=== PATIENT | female | born 1990 | race Caucasian/White ===

== ENCOUNTER 2017-01-16 16:33 | Outpatient (CLI) | payer OTHER ==
[2017-01-16] MEDS ORDERED: BETAMETH SOD PHOS/ACETATE IA 6 MG/ML IM SCH (18:45)
[2017-01-16 19:08] LABS: BASO % 0.2 %; BASO ABS # 0.02 K/uL (0-0.2); COMPLETE YES; EOS % 1.2 %; HEMATOCRIT 30.9 % (37-47); IG% 0.8 %; LYMPH % 26.6 %; LYMPH ABS # 2.46 K/uL (1.2-3.4); MEAN CELL VOLUME 90.4 fL (80-100); MEAN CORPUSCULAR HEMOGLOBIN 29.8 pg (25-34); MEAN PLATELET VOLUME 10.8 fL (7.4-10.4); MONO % 9.3 %; NEUT % 61.9 %; PLATELET COUNT 174 K/uL (130-400); RED BLOOD COUNT 3.42 M/uL (4.2-5.4); WHITE BLOOD COUNT 9.24 K/uL (4.8-10.8)
--- NOTE | 2017-01-16 19:44 | DIAGNOSTIC IMAGING REPORT ---
LIMITED (US) CLINICAL HISTORY: 26 years-old Female presenting with bleeding at 30 weeks. TECHNIQUE: Real-time grayscale, M-mode and limited color Doppler ultrasound imaging of the pelvis was performed using a transabdominal probe. COMPARISON: None. FINDINGS: Uterus: Single live intrauterine . heart rate 136 bpm. Cephalic presentation. Biparietal diameter 77 mm (estimate gestational age 31 weeks 0 days). Femur length 55 mm (assessment gestational age 28 weeks 6 days). Estimated composite gestational age 29 weeks 4 days. Estimated date of delivery 03/30/2017. Anterior placenta, which is normal-appearing. Normal vascularity of the placenta. Normal amniotic fluid volume. No perigestational fluid collection visualized. Adnexa: Not evaluated secondary to the size of the uterus. Other: No free fluid. IMPRESSION: 1. Single live intrauterine with estimated gestational age 29 weeks 4 days (estimated delivery 03/30/2017). 2. Anterior normal-appearing placenta. Electronically signed by: Arash Chapa M.D. 01/16/2017 7:43 PM Dictated Date/Time: 01/16/2017 7:38 PM
[2017-01-16 19:56] LABS: FIBRINOGEN* 330 mg/dl (184-400); INR 0.9 (0.9-1.1); PROTHROMBIN TIME (PATIENT) 9.8 SECONDS (9.0-12.0)
[2017-01-16 20:40] LABS: URINE APPEARANCE CLEAR (CLEAR); URINE BILIRUBIN NEG (NEG); URINE COLOR YELLOW; URINE EPITHELIAL CELL AUTO 20-30 /lpf (0-5); URINE NITRITE NEG (NEG); UROBILINOGEN NEG (NEG); ZZUR CULT IF INDIC CLEAN CATCH NO
[2017-01-16 20:42] LABS: MANUAL MICROSCOPIC REQUIRED? NO; REVIEW REQ? NO
--- NOTE | 2017-01-16 20:47 | History and Physical ---
History & Physical Date & Time of Service: Jan 16, 2017 at 20:23 Chief Complaint: Check Bleeding Primary Care Physician: No Doctor, Assigned History of Present Illness Source: patient 26yo at 30 weeks gestation with sudden vag bleeding. seen on L&D and evaluated for her bleeding. No hx of bleeding in this review of records show anterior placenta at sono for 11/05/16 Pt denies any trauma to the abdomen, fall or intercourse in the last 2 days On arrival to L&D there was very little bleeding on her pad. FHR CAT1. No ctx on monitor. Pelvic exam showed small amount of blood in the vaginal vault. No active bleeding from cervix. cervix is closed and thick Labs for abruption done with sonogram Unremarkable labs Family History Noncontributory Social History Smoking Status: Never Smoker Smokeless Tobacco Use: No Alcohol Use: none Drug Use: none Marital Status: Housing status: lives with family Occupational Status: employed Multi-Drug Resistant Organisms History of MDRO: No Allergies Coded Allergies: No Known Allergies (Unverified , 02/21/08) Home Medications Miscellaneous Medications None (Patient States No Home Meds) Review of Systems Constitutional: No fever, No chills, No sweats, No weight loss, No weakness, No fatigue Eyes: + problem reported, No worsening of vision, No eye pain, No redness, No discharge, No diplopia ENT: + problem reported Respiratory: No cough, No sputum, No wheezing, No shortness of breath, No dyspnea on exertion, No dyspnea at rest, No hemoptysis, No problem reported Cardiovascular: No chest pain, No orthopnea, No PND, No edema, No claudication , No palpitations, No problem reported Abdomen: No pain, No nausea, No vomiting, No diarrhea, No constipation, No GI bleeding, No problem reported Musculoskeletal: No joint pain, No muscle pain, No swelling, No calf pain, No problem reported Genitourinary - Female: No dysuria, No urinary frequency, No urinary urgency, No urinary incontinence, No urinary retention, No hematuria, No dysmenorrhea, No menorrhagia, No metrorrhagia, No rash, No vaginal bleeding, No vaginal discharge, No vaginal itching, No vulvodynia, No , No problem reported Neurologic: No memory loss, No paralysis, No weakness, No numbness/tingling, No vertigo, No balance problems, No problem reported Psychiatric: No depression symptoms, No anhedonism, No anxiety, No insomnia, No substance abuse, No problem reported Endocrine: No fatigue, No excessive thirst, No excessive urination, No problem reported Hematologic / Lymphatic: No abnormal bleeding/bruising, No clotting problems, No swollen lymph nodes, No night sweats, No problem reported Integumentary: No rash, No itch, No new/changing skin lesions, No color change , No bleeding, No problem reported Physical Exam General Appearance: WD/WN, no apparent distress Head: normocephalic, atraumatic Eyes: normal inspection, PERRL, EOMI ENT: normal ENT inspection, hearing grossly normal, TMs normal Neck: supple, no adenopathy Respiratory/Chest: chest non-tender, lungs clear Cardiovascular: regular rate, rhythm, no edema Abdomen/GI: normal bowel sounds Genitourinary - Female: + pertinent finding (small amount of blood in the vaginal vault. no active bleeding from cervix. 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 Skin: normal color Diagnostics Laboratory Results Results Past 24 Hours Test 01/16/17 18:34 01/16/17 18:55 01/16/17 18:56 Range/Units Prothrombin Time 9.8 9.0-12.0 SECONDS Prothromb Time International Ratio 0.9 0.9-1.1 Fibrinogen 330 184-400 mg/dl Fibrin Degradation Products <10 <10 mcg/ml White Blood Count 9.24 4.8-10.8 K/uL Red Blood Count 3.42 4.2-5.4 M/uL Hemoglobin 10.2 12.0-16.0 g/dL Hematocrit 30.9 37-47 % Mean Corpuscular Volume 90.4 80-100 fL Mean Corpuscular Hemoglobin 29.8 25-34 pg Mean Corpuscular Hemoglobin Concent 33.0 32-36 g/dl Platelet Count 174 130-400 K/uL Mean Platelet Volume 10.8 7.4-10.4 fL Neutrophils (%) (Auto) 61.9 % Lymphocytes (%) (Auto) 26.6 % Monocytes (%) (Auto) 9.3 % Eosinophils (%) (Auto) 1.2 % Basophils (%) (Auto) 0.2 % Neutrophils # (Auto) 5.72 1.4-6.5 K/uL Lymphocytes # (Auto) 2.46 1.2-3.4 K/uL Monocytes # (Auto) 0.86 0.11-0.59 K/uL Eosinophils # (Auto) 0.11 0-0.5 K/uL Basophils # (Auto) 0.02 0-0.2 K/uL RDW Standard Deviation 45.0 36.4-46.3 fL RDW Coefficient of Variation 13.6 11.5-14.5 % Immature Granulocyte % (Auto) 0.8 % Immature Granulocyte # (Auto) 0.07 0.00-0.02 K/uL Impression VTE Prophylaxis VTE Risk Assessment Done? Y/N: Yes Risk Level: Very Low Note 3rd TM bleeding on Bleeding is stable since arrival on L&D labs and sono done - unremarkable Pt given betamethasone 12mg IM and second dose scheduled for tomorrow I have recommended to patient 72 hrs of inpatient observation have explained to her and her family, the risk of another spontaneous bleed despite nml labs and sonogram finding. I have explained to her this will allow for adequate time for steriod benefit to the baby as well she understands the potential risk of another bleed which my be more severe and the potential that she may not make it to the hospital in time for an emergency c/sec and or treatment that can lead to both her demise as well as that of the baby pt tells me she has a day care center and cannot afford not to be there This discussion is held with her mother and spouse in the room she is therefore given AMA forms and signing out against my medical advice and recommendation she has however agreed to return tomorrow for her second dose of IM steriods she knows to call or came back if her bleeding increase or if she changes her mind We have discussed the need for pelvic rest and decrease activity as much as possible
--- NOTE | 2017-01-16 20:50 | Discharge Instructions ---
Discharge Instructions Date of Service Jan 16, 2017. Admission Reason for Admission: Check Bleeding Discharge Discharge Diagnosis / Problem: bleeding in 3rd trimester of Discharge Goals Goal(s): Continuing OB care Activity Recommendations Activity Limitations: as noted below Lifting Limitations: none Exercise/Sports Limitations: none Driving or Machine Use: no limitations ACTIVITY RECOMMENDATIONS: See Labor Sheet. SPECIAL CARE INSTRUCTIONS: Call Doctor if: * Regular contractions every 5 minutes or greater than contractions in one hour. * Bleeding * Water breaks or is leaking * Decreased movement * Fever >100.4 degrees F * Pain not relieved by routine measures or pain medication ordered. FOLLOW UP VISIT: Return to Labor and Delivery on for /call for appointment time . Follow-up Visit with: When: . Current Hospital Diet Patient's current hospital diet: Regular OB Diet Discharge Diet Recommended Diet: Regular Diet Pending Studies Studies pending at discharge: no Medical Emergencies . Who to Call and When: Medical Emergencies: If at any time you feel your situation is an emergency, please call 911 immediately. . Non-Emergent Contact Non-Emergency issues call your: Specialist . . "Provider Documentation" section prepared by Juarez Mo. . VTE Core Measure Inpt VTE Proph given/why not?: Treatment not indicated
[2017-04-04] MEDS ORDERED: MTR600X PO (10:13)
== END 2017-01-16 21:00 | disposition home or self-care (01) ==
LOC: C.OPB 16:33 → C.LD 16:33 → C.OPB 21:00
PROVIDERS: ATTEND Obstetrics & Gynecology
DX: O46.93 Antepartum hemorrhage, unspecified, third trimester (principal); Z3A.30 30 weeks gestation of pregnancy; Z91.19 Patient's noncompliance with other medical treatment and regimen

== ENCOUNTER 2017-01-17 19:35 | Outpatient (CLI) | payer OTHER ==
[2017-01-17] MEDS ORDERED: NURSING VERBAL MED ORDER ONE (20:15)
[2017-01-17] MEDS ORDERED: BETAMETH SOD PHOS/ACETATE IA 6 MG/ML IM ONE (20:15)
--- NOTE | 2017-01-25 13:26 | EDITING REQUIRED CODING QUERY ---
DIAGNOSIS NEEDED To promote full compliance with coding requirements relating to patient care, physician participation is requested in all cases of orthopedic coder uncertainty. Please assist us with the question(s) below: Coding Question: The patient received care in labor and delivery on 01/18/17 as noted within the record. Please document the diagnosis that is being addressed by the medication/treatment. Provider Response: DIAGNOSIS: Managed by Dr. Mo Thank you for your assistance, Jerica Abreu - Embedded Software Engineer
--- NOTE | 2017-02-13 11:08 | EDITING REQUIRED CODING QUERY ---
DIAGNOSIS NEEDED To promote full compliance with coding requirements relating to patient care, physician participation is requested in all cases of fuel operator uncertainty. Please assist us with the question(s) below: Coding Question: The patient received care in labor and delivery on 01/18/17 as noted within the record. Please document the diagnosis that is being addressed by the medication/treatment. Provider Response: DIAGNOSIS: labor Thank you for your assistance, Jerica Abreu - Shotblaster
== END 2017-01-17 20:20 | disposition home or self-care (01) ==
LOC: C.OPB 19:35 → C.LD 20:05 → C.OPB 20:20
PROVIDERS: ATTEND Obstetrics & Gynecology
DX: O60.03 Preterm labor without delivery, third trimester (principal); Z3A.30 30 weeks gestation of pregnancy

== ENCOUNTER 2017-04-01 11:44 | Inpatient (IN) | payer OTHER ==
[~2017-04-01] VITALS: Ht 160 cm; Wt 63.2 kg
[2017-04-01] MEDS ORDERED: LACTATED RINGER'S 1000ML 1,000 ML IV PRN (12:25)
--- NOTE | 2017-04-01 12:30 | Progress Note ---
Progress Note Date of Service Apr 01, 2017. Progress Note Admit Note 26 F P1011 at 41.1 weeks admitted for IOL for post-dates. Cervix is 1/50/-3/ vertex/firm/intact. GBS is negative. FHT Cat 1. Will [address] Cervidil for cervical ripening.
[2017-04-01] MEDS ORDERED: PEDICHW50 PO (12:36)
[2017-04-01] MEDS ORDERED: FERR1TAB23 PO (12:36)
[2017-04-01 12:39] VITALS: Ht 160 cm; Wt 63.2 kg
[2017-04-01] MEDS ORDERED: DINOPROSTONE 10 MG INSERT PV ONE (12:45)
[2017-04-01 13:00] LABS: HEMATOCRIT 31.7 % (37-47); MEAN CELL VOLUME 86.4 fL (80-100); MEAN CORPUSCULAR HEMOGLOBIN 26.7 pg (25-34); MEAN CORPUSCULAR HGB CONC 30.9 g/dl (32-36); MEAN PLATELET VOLUME 11.1 fL (7.4-10.4); PLATELET COUNT 213 K/uL (130-400); RED BLOOD COUNT 3.67 M/uL (4.2-5.4); WHITE BLOOD COUNT 8.02 K/uL (4.8-10.8)
[2017-04-01] MEDS: LACTATED RINGER'S 1000ML 1,000 ML IV SCH (20:25)
[2017-04-02] MEDS ORDERED: LACTATED RINGER'S 1000ML 500 ML IV PRN ×2 (07:21→11:57)
[2017-04-02] MEDS ORDERED: OXYTOCIN 30 UNITS/500ML NSS IV PRN ×2 (07:30→17:00)
[2017-04-02] MEDS: LACTATED RINGER'S 1000ML 1,000 ML IV SCH ×3 (09:32→15:47)
[2017-04-02] MEDS ORDERED: BUPIVACAINE 0.25% 30 ML VIAL ONE (11:24)
[2017-04-02] MEDS ORDERED: EpHEDrine SULFATE INJ 50 MG/ML AMP ONE (11:24)
[2017-04-02] MEDS ORDERED: FENTANYL 2MCG/ML ROPIV 1.25MG/ML 100ML BAG EPI ONE (11:24)
[2017-04-02] MEDS ORDERED: FENTANYL CITRATE INJ 50 MCG/1 ML 2 ML VIAL ONE (11:25)
[2017-04-02] MEDS ORDERED: NALOXONE HCL INJ 1 MG in SODIUM CHLORIDE 0.9% 1000ML 1,000 ML IV PRN (11:57)
[2017-04-02] MEDS ORDERED: FENTANYL 2MCG/ML ROPIV 1.25MG/ML 100ML BAG EPI PRN (12:00)
[2017-04-02] MEDS ORDERED: PROMETHAZINE HCL INJ 6.25 MG in SODIUM CHLORIDE 0.9% 50ML 50 ML IV PRN (12:00)
[2017-04-02] MEDS ORDERED: NALOXONE HCL INJ 0.4 MG/1 ML VIAL/CARP IV PRN (12:00)
[2017-04-02] MEDS ORDERED: ONDANSETRON INJ 2 MG/ML 2 ML VIAL IV PRN (12:00)
[2017-04-02] MEDS ORDERED: NALBUPHINE HCL INJ 10 MG/ML AMP IV PRN (12:00)
[2017-04-02] MEDS ORDERED: EpHEDrine SULFATE INJ 50 MG/ML AMP IV PRN (12:00)
[2017-04-02] MEDS ORDERED: DiphenhydrAMINE HCL 50 MG/ML VIAL IV PRN (12:00)
[2017-04-02] MEDS ORDERED: DIPHTHERIA/TETANUS/PERTUSSIS 0.5 ML SYR/VIAL IM. ONE (17:00)
[2017-04-02] MEDS ORDERED: SUPERCREAM 0.870 % 15GM JAR EXT PRN (17:00)
[2017-04-02] MEDS ORDERED: ACETAMINOPHEN/CODEINE 300/30MG TAB PO PRN ×2 (17:00)
[2017-04-02] MEDS ORDERED: BENZOCAINE 20% AER SPR 82.5 GM CAN EXT PRN (17:00)
[2017-04-02] MEDS ORDERED: LANOLIN OINT EXT PRN ×2 (17:00)
[2017-04-02] MEDS ORDERED: OXYCODONE/ACETAMINOPHEN 5-325 TAB PO PRN (17:00)
[2017-04-02] MEDS ORDERED: ACETAMINOPHEN 325 MG TAB PO PRN (17:00)
[2017-04-02] MEDS ORDERED: HYDROCORTISONE ACETATE 25 MG SUPP PR PRN (17:00)
--- NOTE | 2017-04-02 18:59 | DELIVERY SUMMARY ---
DATE OF OPERATION: 04/02/2017 DATE OF DELIVERY: 04/02/2017. TIME OF DELIVERY: 1641. DELIVERY OF PLACENTA: 1645. DELIVERY NOTE: The patient is a 26-year-old 3, para 1 at 41 weeks and 2 days gestation who was admitted to labor and delivery on the morning of 04/01/2017 for a scheduled induction of labor secondary to post dates. She received Cervidil intravaginally at 12:30 p.m. and was removed at 12:30 a.m. on 04/02/2017. Oxytocin was begun per protocol for labor augmentation that morning. She received an epidural for anesthesia. Artificial rupture of membranes was performed at 1337 with clear amniotic fluid noted. She was found to be completely dilated at 1628 with the urge to push. The patient pushed to delivery at 1641. She delivered a viable male in the left occiput anterior position to an intact perineum. Nuchal cord x1 was reduced at delivery. The anterior shoulder was delivered with Miko. The rest of the baby was delivered without difficulty. Cord was clamped x2 and cut. Apgars were 7 at 1 minute and 8 at 5 minutes. Please see nursing notes for further baby assessment. Cord blood donation was obtained along with cord blood. An intact placenta with 3-vessel cord was delivered at 1645. Oxytocin infusion was then began. The lower uterine segment and vagina were cleared of any blood clots and debris. Exploration of the perineum noted a first degree vaginal laceration which was repaired with 3-0 Vicryl suture in continuous running fashion. Excellent hemostasis was noted. No other lacerations were seen. Estimated blood loss was 350 mL. All sponge, instrument and needle counts were found to be correct x2. Both patient and baby tolerated the delivery well and were in recovery with stable vital signs. I attest to the content of the Intraoperative Record and any orders documented therein. Any exceptions are noted below. MTDD
--- NOTE | 2017-04-02 19:33 | Anesthesia Procedure Note ---
Anesthesia Epidural Removal Nt Date & Time Apr 02, 2017 at 19:33 Vital Signs Pain Intensity: 8.0 Notes Mental Status: alert / awake / arousable, participated in evaluation Nausea / Vomiting: adequately controlled Pain: adequately controlled Airway Patency, RR, SpO2: stable & adequate BP & HR: stable & adequate Hydration State: stable & adequate Neuraxial Anesthesia: was administered Anesthetic Complications: no major complications apparent, pt satisfied with anesthetic care Epidural: removed without complications, with tip intact
[2017-04-02 20:35] VITALS: BP 123/72; PULSE 81; TEMP 36.9
[2017-04-02] MEDS: DOCUSATE SODIUM 100 MG CAP PO SCH ×2 (20:35→21:14)
[2017-04-02 23:50] VITALS: BP 106/64; PULSE 76; TEMP 36.6; O2SAT 97
[2017-04-02] MEDS: IBUPROFEN 600 MG TAB PO PRN (23:56)
[2017-04-03 03:30] VITALS: BP 102/60; PULSE 76; TEMP 36.8; O2SAT 99
[2017-04-03 07:40] VITALS: BP 108/66; PULSE 69; TEMP 36.7
[2017-04-03] MEDS: FERROUS SULFATE 325 MG TAB PO SCH (09:07)
[2017-04-03] MEDS: DOCUSATE SODIUM 100 MG CAP PO SCH ×2 (09:07→21:06)
[2017-04-03] MEDS: PRENATAL VITAMIN TAB PO SCH (09:07)
[2017-04-03 09:19] LABS: HEMATOCRIT 31.1 % (37-47)
--- NOTE | 2017-04-03 09:52 | OB/GYN Progress Note ---
HEARING AID DISPENSER Progress Note Date of Service Apr 03, 2017. Subjective conversation w/ patient, physical exam Ambulation: ambulating normally Objective Vital Signs Date Time Temp Pulse Resp B/P (MAP) Pulse Ox O2 Delivery O2 Flow Rate FiO2 04/03/17 07:40 36.7 69 18 108/66 (80) Room Air 04/03/17 07:40 Room Air 04/03/17 03:30 36.8 76 18 102/60 (74) 99 Room Air 04/02/17 23:50 36.6 76 18 106/64 (78) 97 Room Air 04/02/17 23:50 97 Room Air 04/02/17 20:35 36.9 81 16 123/72 (89) Room Air 04/02/17 20:35 Room Air Physical Exam General Appearance: NO APPARENT DISTRESS Abdomen: non tender, soft Fundus: Firm Extremities: normal range of motion, non-tender, normal inspection, no pedal edema Laboratory Results Last 24 Hours Test 04/03/17 08:00 Hemoglobin 10.0 g/dL Hematocrit 31.1 % Assessment and Plan Post- Day Number: 1 Continue Routine Care: tent d/c in AM
[2017-04-03 11:15] VITALS: BP 108/68; PULSE 68; TEMP 36.6
[2017-04-03 15:30] VITALS: BP 110/72; PULSE 81; TEMP 36.7
[2017-04-03] MEDS ORDERED: BISACODYL 5 MG TABEC PO SCH (20:00)
[2017-04-03 23:00] VITALS: BP 110/70; PULSE 79; TEMP 36.8
[2017-04-04] MEDS: IBUPROFEN 600 MG TAB PO PRN ×2 (05:20→09:27)
[2017-04-04] MEDS ORDERED: BISACODYL 10 MG SUPP PR PRN (07:00)
[2017-04-04 07:20] VITALS: BP 108/62; PULSE 80; TEMP 36.4
[2017-04-04 07:54] LABS: HEMATOCRIT 33.8 % (37-47); MEAN CELL VOLUME 86.4 fL (80-100); MEAN CORPUSCULAR HEMOGLOBIN 28.4 pg (25-34); MEAN CORPUSCULAR HGB CONC 32.8 g/dl (32-36); MEAN PLATELET VOLUME 11.2 fL (7.4-10.4); PLATELET COUNT 207 K/uL (130-400); RED BLOOD COUNT 3.91 M/uL (4.2-5.4); WHITE BLOOD COUNT 8.99 K/uL (4.8-10.8)
[2017-04-04] MEDS: FERROUS SULFATE 325 MG TAB PO SCH (09:27)
[2017-04-04] MEDS: DOCUSATE SODIUM 100 MG CAP PO SCH (09:27)
[2017-04-04] MEDS: PRENATAL VITAMIN TAB PO SCH (09:27)
[2017-04-04] MEDS ORDERED: MTR600X PO (10:13)
--- NOTE | 2017-04-04 10:13 | OB/GYN Progress Note ---
PRECIPITATION EQUIPMENT TENDER Progress Note Date of Service Apr 04, 2017. Subjective conversation w/ patient, physical exam Ambulation: ambulating normally Voiding: no voiding problems Passing Gas: Yes Diet Tolerance: Regular Diet Lochia: Moderate Feeding Type: Breast Feeding Review of Systems Constitutional: No fever, No chills, No sweats, No weight loss, No weakness, No fatigue, No problem reported Respiratory: No cough, No sputum, No wheezing, No shortness of breath, No dyspnea on exertion, No dyspnea at rest, No hemoptysis, No problem reported Cardiac: No chest pain, No orthopnea, No PND, No edema, No claudication, No palpitations, No problem reported Breast: No see HPI, No breast lump, No change in shape, No nipple discharge, No breast pain, No problem reported Abdomen: No pain, No nausea, No vomiting, No diarrhea, No constipation, No GI bleeding, No problem reported Female : No see HPI, No dysuria, No urinary frequency, No hematuria, No incontinence, No abnormal vaginal bleeding, No vaginal discharge, No problem reported Objective Vital Signs Date Time Temp Pulse Resp B/P (MAP) Pulse Ox O2 Delivery O2 Flow Rate FiO2 04/04/17 07:20 Room Air 04/04/17 07:20 36.4 80 16 108/62 (77) Room Air 04/03/17 23:00 36.8 79 18 110/70 (83) Room Air 04/03/17 23:00 Room Air 04/03/17 15:30 36.7 81 20 110/72 (85) Room Air 04/03/17 15:30 Room Air 04/03/17 11:15 36.6 68 18 108/68 (81) Room Air Physical Exam General Appearance: WELL-APPEARING, WD/WN, NO APPARENT DISTRESS, uncomfortable Respiratory/Chest: chest non-tender, lungs clear, normal breath sounds, no respiratory distress, no accessory muscle use Cardiovascular: regular rate, rhythm, no edema, no gallop, no JVD, no murmur Abdomen: normal bowel sounds, non tender, soft, no organomegaly, no pulsatile mass Fundus: Firm Extremities: normal range of motion, non-tender, normal inspection, no pedal edema, no calf tenderness Laboratory Results Last 24 Hours Test 04/04/17 07:31 White Blood Count 8.99 K/uL Red Blood Count 3.91 M/uL Hemoglobin 11.1 g/dL Hematocrit 33.8 % Mean Corpuscular Volume 86.4 fL Mean Corpuscular Hemoglobin 28.4 pg Mean Corpuscular Hemoglobin Concent 32.8 g/dl RDW Standard Deviation 49.1 fL RDW Coefficient of Variation 15.9 % Platelet Count 207 K/uL Mean Platelet Volume 11.2 fL Assessment and Plan Post- Day Number: 2 Continue Routine Care: PPD #2 Pt doing well d/c home with instructions
--- NOTE | 2017-04-04 10:16 | Discharge Instructions ---
Discharge Instructions Date of Service Apr 04, 2017. Admission Reason for Admission: Induction Discharge Discharge Diagnosis / Problem: Discharge Goals Goal(s): Routine recovery after delivery Activity Recommendations Activity Limitations: as noted below ACTIVITY RECOMMENDATIONS: * Gradual return to full activity over the next 2-3 weeks. * No lifting - nothing heavier than baby over the next 2-3 weeks. * Do not engage in vigorous exercise, sexual activity or sports until cleared by your physician. * Do not drive or operate any motorized equipment until cleared by your physician. * You may shower/bathe daily. BREAST CARE: If you are not breast feeding: * Wear a supportive bra 24 hours a day for one to two weeks. * Avoid stimulating your breasts and nipples as much as possible during the first few weeks after delivery. * When taking a shower, have the warm water hit your back, not breasts. * When your breasts feel full, apply ice packs. Usually three to four times a day helps ease the discomfort. * Take a mild pain medication (Tylenol/Motrin) when you are uncomfortable. If breast feeding: * Use breast milk to lubricate nipples. Lansinoh cream may be used for sore nipples. You do not need to remove cream prior to breast feeding. If using a different brand of cream, check the label for directions regarding removal of cream prior to nursing. * Wear a supportive bra. * If having problems with breasts or breast feeding, call a corporate travel consultant or your health care provider. EPISIOTOMY CARE: After delivery, if you have an episiotomy (stitches), the following steps will ease discomfort and aid healing. * For the first 24 hours after delivery, place ice packs next to your episiotomy to help reduce swelling. * After the first 24 hour-period, sitz baths, either portable or in the tub, are suggested. A shower with a shower arm sprayed over the episiotomy may be comforting. * Meaghan care should be done after each voiding and bowel movement. Squirt warm water from a plastic bottle over the perineum (region of the body between the anus and urinary opening) and pat dry. * Use Dermoplast to ease discomfort. Shake container. [place] directly over the episiotomy. * Place a Tucks on a clean sanitary pad next to your episiotomy. OVER THE COUNTER MEDICATION: * For discomfort or pain, you may use Acetaminophen (Tylenol), Ibuprofen (Advil ), or Naproxen (Aleve) following the package directions. * For constipation you may use Colace following the package directions. SPECIAL CARE INSTRUCTIONS: When you are discharged from the hospital, it is important for you to follow the instructions listed below: * During the first week at home, you should be able to care for yourself and your baby. In addition, the usual light household activities are encouraged. * Limit your activities to the way you feel. Do not try to clean the house or move furniture. Be sensible. * If you actively engage in sports and have done so up until the time of your delivery, you may resume these activities as soon as you feel able. This may take up to one month or even longer. Use good judgment. * Continue to take your vitamins for at least six weeks after the of your baby. * Your diet need not be limited unless you were on a special diet before your delivery. Breast-feeding mothers need around 2500 calories per day and at least 64-80 ounces of fluid per day (8 to 10 glasses). * You should eat foods from the four major food groups. Crash diets or fad diets are to be avoided. Eating lean meats, fresh fruits and vegetables, low-fat dairy products, high fiber foods and a regular exercise program, will help you get back to your pre- weight without putting your health at risk. * Constipation is sometimes a problem after delivery. Take a mild laxative as needed. If breast feeding, Milk of Magnesia is acceptable to use. You may use a suppository or Fleets enema if no episiotomy. * A daily shower or tub bath is suggested. Be sure to thoroughly and gently dry the perineum. * A bloody vaginal discharge will usually continue until around four weeks post . A small amount of bleeding may continue for as long as six weeks. Vaginal discharge changes from the bright red bleeding after delivery to pink then brownish and finally yellowish-pink before becoming white and disappearing. * Bleeding may increase with activity. Your first period may come in 4-8 weeks. If you are breast feeding, your period may be delayed even longer. * [place] (sex) can begin whenever both you and your partner feel comfortable and do not have any form of genital infection. It is recommended that you wait until after your return appointment and discuss with your physician. If you have questions, please talk to your health care practitioner. A condom should be used to prevent infection and . * Foreplay, gentle intercourse and lubrication is very important the first several times to prevent pain. A water-based lubricant such as K-Y jelly or Astroglide may be used. * Tampons may be used six weeks after delivery. * Douching should be avoided for 6 weeks after delivery. * If you have RH negative blood and your baby is RH positive, you will receive RHOGAM by injection prior to discharge. The nurse will give you a card to keep with you that has the date and place that you received RHOGAM after delivery. * During your care, you had a Rubella screen done to check for the presence of rubella antibodies in your blood. If your test was negative, you will receive a Rubella vaccine prior to discharge. This vaccine may cause a fever, soreness at the injection site and flu-like symptoms. If these symptoms persist, notify your health care practitioner. is not advised for three months after a Rubella vaccine. There is a higher chance of having a baby with defects if conceived within three months of getting the vaccine. * If you were discharged 24 hours from delivery or before 48 hours: Visiting nurses will come to your home 48 hours after discharge to assess you and your baby. The visiting nurse will meet with you while you are in the hospital to arrange a time and get directions to your home. * Verbalizes understanding of car seat law as reviewed with patient nursing. * Car Seat hand-out given and reviewed with patient by nursing. * Shaken baby information reviewed with patient by nursing. Call you doctor if: * Heavy bleeding (saturating several pads an hour) or passing clots the size of your fist. * A fever >101 degrees F (38.3 degrees C) on two occasions four hours apart and/or chills. * Unusual pain in the pelvic or vaginal areas. * "Baby Blues" lasting longer than two weeks. If you have any questions or concerns, call your health care practitioner at . FOLLOW-UP VISIT: * Please call the office at to schedule a 6 week examination. It is important you keep this appointment. * It is important for you to make arrangements for either yearly or twice yearly check-ups thereafter. . Current Hospital Diet Patient's current hospital diet: Regular OB Diet Discharge Diet Recommended Diet: Regular Diet Pending Studies Studies pending at discharge: no Medical Emergencies . Who to Call and When: Medical Emergencies: If at any time you feel your situation is an emergency, please call 911 immediately. . Non-Emergent Contact Non-Emergency issues call your: Specialist . . "Provider Documentation" section prepared by Juarez Mo. . VTE Core Measure Inpt VTE Proph given/why not?: Treatment not indicated
[2017-04-04 10:40] VITALS: BP_DIAS 62; PULSE 80; TEMP 36.4
== END 2017-04-04 12:47 | disposition home or self-care (01) | DRG 775 ==
LOC: C.LD 12:02 → C.MS4N 04-02 20:42
PROVIDERS: ADMIT Obstetrics & Gynecology; ATTEND Obstetrics & Gynecology
PROC: 3E0P7GC Introduction of Other Therapeutic Substance into Female Reproductive, Via Natural or Artificial Opening (ICD-10-PCS; principal; 2017-04-01)
PROC: 10E0XZZ Delivery of Products of Conception, External Approach (ICD-10-PCS; 2017-04-02)
PROC: 0HQ9XZZ Repair Perineum Skin, External Approach (ICD-10-PCS; 2017-04-02)
PROC: 10907ZC Drainage of Amniotic Fluid, Therapeutic from Products of Conception, Via Natural or Artificial Opening (ICD-10-PCS; 2017-04-02)
DX: O48.0 Post-term pregnancy (principal); O69.81X0 Labor and delivery complicated by cord around neck, without compression, not applicable or unspecified; O70.0 First degree perineal laceration during delivery; Z3A.41 41 weeks gestation of pregnancy; Z37.0 Single live birth

== ENCOUNTER 2018-11-01 22:21 | Inpatient (IN) ==
[2018-11-01] MEDS ORDERED: LACTATED RINGER'S 1,000 ML IV PRN (22:37)
[2018-11-01] MEDS ORDERED: OXYTOCIN 30 UNITS/500 ML BAG IV PRN (22:37)
[2018-11-01] MEDS ORDERED: PENICILLIN G POTASSIUM 6 MU in DEXTROSE 5% 250 ML IV STA (22:41)
[2018-11-01] MEDS ORDERED: PENICILLIN G POTASSIUM 3 MU in DEXTROSE 5% 100 ML IV PRN (22:41)
[2018-11-01] MEDS: LACTATED RINGER'S 1,000 ML IV SCH (22:45)
[2018-11-01 23:01] LABS: Hematocrit (blood only) 31.8 % (37-47); Hemoglobin 10.4 g/dL (12.0-16.0); Mean Corpuscular Volume 85.9 fL (80-100); Mean Platelet Volume 10.6 fL (7.4-10.4); Platelet Count 192 K/uL (130-400); RDW Coefficient of Variation 14.7 % (11.5-14.5); RDW Standard Deviation 45.7 fL (36.4-46.3); White Blood Count 12.87 K/uL (4.8-10.8)
[2018-11-01 23:02] LABS: Mean Corpuscular Hgb Conc 32.7 g/dL (32-36)
--- NOTE | 2018-11-01 23:13 | Obstetrical Progress Note ---
Date of Service November 01, 2018 Subjective 27 F P2012 at 37.1 weeks EDC 11/21/18 admitted in active labor with regular contractions every 4 minutes. FHT Cat 1. GBS is positive. care uncomplicated. Cervix 6/100/-1 with bulging membranes intact. EFW 7#14 oz. Patient requesting epidural. Will admit and start antibiotics. Anticipate vaginal delivery. Results & Data Vital Signs (Past 12 Hours) Vital Signs Temp Pulse Resp BP 11/01/18 22:36 36.7 C 96 H 20 127/73 11/01/18 22:25 96 H 127/73
[2018-11-01] MEDS ORDERED: BUPIVACAINE 0.25% 30 ML VIAL ONE (23:38)
[2018-11-01] MEDS ORDERED: ePHEDrine sulfate 50 MG/ML AMP ONE (23:38)
[2018-11-01] MEDS ORDERED: fentaNYL 2MCG/ML ROPIV 1.25MG/ML 100 ML BAG EPI ONE (23:39)
[2018-11-01] MEDS ORDERED: fentaNYL citrate 100 MCG/2 ML VIAL ONE (23:39)
--- NOTE | 2018-11-02 00:25 | Anesthesiology Consultation ---
Date of Service November 02, 2018 Assessment & Plan (1) Encounter for pre-operative examination: Chart Review Chart Review: Acceptable Risk for Surgery and Patient NOT seen in Pre Admission Testing Consults Requested none ASA ASA2 Proposed Anesthesia Anesthesia Type: Labor Epidural Risk / Benefits Reviewed With: PT / POA / Parent / Guardian, Accepts Plan and Informed Consent Obtained History Height/Weight Height: 5 ft 3 in Weight: 63.049 kg Allergies Allergy/AdvReac Type Severity Reaction Status Date / Time cephalexin Allergy Intermediate HIVES Verified 09/12/18 08:14 Medications Home Medications Medication Instructions Recorded Confirmed Last Taken ferrous sulfate [iron] 325 mg PO Q OTHER DAY 09/12/18 11/01/18 10/30/18 08:00 vit-iron fum-folic ac 1 tab PO DAILY 09/12/18 11/01/18 11/01/18 08:00 [ Vitamin] metronidazole 500 mg PO BID 11/01/18 11/01/18 10/31/18 21:00 Active Medications Generic Name Dose Route Start Last Admin Trade Name Clarissa PRN Reason Stop Dose Admin Lactated Ringer's 1,000 mls @ 125 mls/hr 11/01/18 22:45 11/01/18 23:30 Lr IV 11/03/18 22:44 0 mls/hr .Q8H RIDDHI Infusion Past Medical History Medical History History of miscarriage Social History Smoking Status: Never smoker Hx Alcohol Use: No Hx Substance Use: No substance use type: does not use Physical Exam Vital Signs Last Vital Signs Temp 36.7 C 11/01/18 22:36 Pulse 96 H 11/02/18 00:23 Resp 20 11/01/18 22:36 BP 98/62 L 11/02/18 00:23 Pulse Ox 96 11/02/18 00:23 ENMT Mouth: no TMJ abnormality Thyromental Distance: > or= 3.5 Finger Breadths Mallampati Class: II Neck normal visual inspection Respiratory normal respiratory effort Cardiovascular Rate/Rhythm: regular rate and regular rhythm Neurologic moves all extremities Psychiatric Orientation: alert Testing Laboratory Results 11/01/18 22:48
[2018-11-02] MEDS ORDERED: DiphenhydrAMINE HCL 50 MG/ML VIAL IV PRN (00:26)
[2018-11-02] MEDS ORDERED: fentaNYL 2MCG/ML ROPIV 1.25MG/ML 100 ML BAG EPI PRN (00:26)
[2018-11-02] MEDS ORDERED: NALOXONE HCL 0.4 MG/1 ML VIAL/CARP IV PRN (00:26)
[2018-11-02] MEDS ORDERED: PROMETHAZINE HCL 6.25 MG in SODIUM CHLORIDE 0.9% 50 ML IV PRN (00:26)
[2018-11-02] MEDS ORDERED: NALOXONE HCL 1 MG in SODIUM CHLORIDE 0.9% 1000ML 1,000 ML IV PRN (00:26)
[2018-11-02] MEDS ORDERED: ePHEDrine sulfate 50 MG/ML AMP IV PRN (00:26)
[2018-11-02] MEDS ORDERED: NALBUPHINE HCL INJ 10 MG/ML AMP IV PRN (00:26)
[2018-11-02] MEDS ORDERED: ONDANSETRON INJ 2 MG/ML 2 ML VIAL IV PRN (00:26)
[2018-11-02] MEDS ORDERED: LACTATED RINGER'S 1,000 ML IV PRN (00:26)
[2018-11-02] MEDS: LACTATED RINGER'S 1,000 ML IV SCH (00:56)
--- NOTE | 2018-11-02 01:59 | Obstetrical Progress Note ---
Date of Service November 02, 2018 Subjective less painful with epidural in place Physical Exam Constitutional: WD/WN, vitals as above comfortable Genitourinary: OB Exam Abdomen: + vertex Manual OB Exam: + cervical dilation 7 cm, + cervical effacement 100%, + station -1 and + amniotic fluid clear OB Exam Monitor Tracing: + external FHT monitor used, + external uterine monitor used and + category I AROM with clear fluid Results & Data Vital Signs (Past 12 Hours) Vital Signs Temp Pulse Resp BP Pulse Ox 11/02/18 01:56 114 H 87/50 L 11/02/18 01:53 96 H 98 11/02/18 01:48 96 H 98 11/02/18 01:45 84 101/58 L 11/02/18 01:43 108 H 94 11/02/18 01:38 106 H 94 11/02/18 01:36 85 107/60 11/02/18 01:33 102 H 97 11/02/18 01:31 88 94 11/02/18 01:28 101 H 94 11/02/18 01:25 90 100/59 L 94 11/02/18 01:23 114 H 95 11/02/18 01:18 95 H 94 11/02/18 01:17 90 94 11/02/18 01:15 107 H 101/56 L 11/02/18 01:13 89 116/61 95 11/02/18 01:11 103 H 103/58 L 11/02/18 01:09 91 H 113/67 11/02/18 01:08 87 94 11/02/18 01:07 104 H 105/62 11/02/18 01:05 103 H 103/58 L 11/02/18 01:03 97 H 106/58 L 96 11/02/18 01:01 91 H 119/64 11/02/18 00:59 108 H 105/57 L 11/02/18 00:58 103 H 97 11/02/18 00:57 84 111/57 L 11/02/18 00:55 80 114/61 11/02/18 00:53 113 H 83/51 L 97 11/02/18 00:51 99 H 96/62 L 11/02/18 00:48 122 H 73/43 L 97 11/02/18 00:47 118 H 71/39 L 11/02/18 00:45 96 H 91/51 L 11/02/18 00:43 115 H 73/44 L 96 11/02/18 00:40 92 H 74/49 L 11/02/18 00:39 116 H 70/32 L 11/02/18 00:38 115 H 97 11/02/18 00:36 91 H 91/51 L 11/02/18 00:35 105 H 75/43 L 11/02/18 00:33 101 H 91/53 L 98 11/02/18 00:31 106 H 98/59 L 11/02/18 00:29 90 99/59 L 11/02/18 00:28 115 H 99 11/02/18 00:27 108 H 96/55 L 11/02/18 00:25 109 H 99/64 L 11/02/18 00:23 96 H 98/62 L 96 11/02/18 00:21 99 H 99/63 L 11/02/18 00:19 94 H 92/58 L 11/02/18 00:18 90 96 11/02/18 00:17 100 H 80/51 L 11/02/18 00:15 85 93/59 L 11/02/18 00:13 92 H 80/44 L 99 11/02/18 00:10 89 97/54 L 11/02/18 00:09 80 93/52 L 11/02/18 00:08 103 H 99 11/02/18 00:03 101 H 100 11/02/18 00:01 100 H 128/71 11/01/18 22:36 36.7 C 96 H 20 127/73 11/01/18 22:25 96 H 127/73 11/01/18 22:24 36.7 C 20
[2018-11-02] MEDS ORDERED: BISACODYL 10 MG SUPP PR PRN (04:03)
[2018-11-02] MEDS ORDERED: ACETAMINOPHEN 325 MG TAB PO PRN (04:03)
[2018-11-02] MEDS ORDERED: SUPERCREAM 0.870% 15 GM JAR EXT PRN (04:03)
[2018-11-02] MEDS ORDERED: OXYTOCIN 30 UNITS/500 ML BAG IV PRN (04:03)
[2018-11-02] MEDS ORDERED: BENZOCAINE 20% AER SPR 82.5 GM CAN EXT PRN (04:03)
[2018-11-02] MEDS ORDERED: HYDROCORTISONE ACETATE 25 MG SUPP PR PRN (04:03)
--- NOTE | 2018-11-02 04:09 | Procedure Note ---
Vaginal Delivery Summary Date of Service November 02, 2018 Vaginal Delivery Summary Delivery Note live male KAYLYNN over intact perineum with nuchal cord x1 reduced on perineum with Apgars 8/9 weight pending. Delayed cord clamping and cord blood obtained for stem cell collection. Placenta then delivered spontaneously and intact. No tears. Final sponge and instrument count were correct. EBL 200 ml. Mom and baby stable.
[2018-11-02] MEDS ORDERED: FERROUS SULFATE 325 MG TAB PO SCH (09:00)
[2018-11-02] MEDS ORDERED: NON-FORMULARY MEDICATION (Prenatal Vit-Iron Fum-Folic Ac [Prenatal Vitamin] 1 TAB) PO SCH (09:00)
[2018-11-02] MEDS: PRENATAL VITAMIN 1 TAB PO SCH (09:09)
[2018-11-02] MEDS: DOCUSATE SODIUM 100 MG CAP PO SCH ×2 (09:09→20:08)
--- NOTE | 2018-11-02 09:25 | Anesthesia Procedure Note ---
Date of Service November 02, 2018 Anesthesia Post Epidural Note Vital Signs Vital Signs: Temp Pulse Resp BP Pulse Ox 98.6 F 86 18 118/74 97 11/02/18 08:00 11/02/18 08:00 11/02/18 08:00 11/02/18 08:00 11/02/18 08:00 Notes Mental Status: alert / awake / arousable and participated in evaluation Nausea / Vomiting: adequately controlled Pain: adequately controlled Airway Patency, RR, SpO2: stable & adequate BP & HR: stable & adequate Hydration State: stable & adequate Neuraxial Anesthesia: was administered and sensory block resolved Anesthetic Complications: no major complications apparent and Pt Satisfied with anesthetic care Epidural: Removed without complications and With tip intact
[2018-11-02] MEDS: IBUPROFEN 600 MG TAB PO PRN ×2 (13:29→20:08)
[2018-11-03] MEDS: IBUPROFEN 600 MG TAB PO PRN (00:12)
[2018-11-03 07:22] LABS: Hematocrit (blood only) 31.7 % (37-47); Hemoglobin 10.3 g/dL (12.0-16.0); Mean Corpuscular Hgb Conc 32.5 g/dL (32-36); Mean Corpuscular Volume 87.3 fL (80-100); Mean Platelet Volume 11.2 fL (7.4-10.4); Platelet Count 198 K/uL (130-400); RDW Coefficient of Variation 14.9 % (11.5-14.5); RDW Standard Deviation 47.3 fL (36.4-46.3); Red Blood Count 3.63 M/uL (4.2-5.4); White Blood Count 9.76 K/uL (4.8-10.8)
[2018-11-03] MEDS ORDERED: DIPHTHERIA/TETANUS/PERTUSSIS 0.5 ML SYR/VIAL IM ONE (09:00)
[2018-11-03] MEDS: PRENATAL VITAMIN 1 TAB PO SCH (09:24)
[2018-11-03] MEDS: DOCUSATE SODIUM 100 MG CAP PO SCH (09:24)
--- NOTE | 2018-11-03 10:10 | Obstetrical Progress Note ---
Date of Service November 03, 2018 Assessment & Plan (1) normal course: PPD #1 Pt doing well No complaints anticipate disch tomorrow Physical Exam Vital Signs (Past 24 Hours) Last Vital Signs Temp 36.6 C 11/03/18 07:40 Pulse 76 11/03/18 07:40 Resp 20 11/03/18 07:40 BP 113/79 11/03/18 07:40 Pulse Ox 97 11/03/18 07:40
[2018-11-03] MEDS ORDERED: BISACODYL 5 MG TABEC PO SCH (20:00)
== END 2018-11-03 18:35 | disposition home or self-care (01) | DRG 807 ==
LOC: OPB 22:21 → 4S1 22:22 → 4S2 11-02 06:30

== ENCOUNTER 2022-11-21 07:37 | Inpatient (IN) ==
[2022-11-21] MEDS ORDERED: OXYTOCIN 30 UNITS/500 ML BAG IV PRN ×3 (08:24→18:34)
[2022-11-21] MEDS ORDERED: LIDOCAINE 1% LOCAL 20 ML VIAL INFIL PRN (08:24)
[2022-11-21] MEDS: LACTATED RINGER'S 1,000 ML IV PRN ×2 (09:12→14:22)
[2022-11-21 09:14] LABS: Hematocrit (blood only) 35.4 % (37.0-47.0); Hemoglobin 11.8 g/dl (12.0-16.0); Mean Corpuscular Hemoglobin 30.4 pg (25.0-34.0); Mean Corpuscular Hgb Conc 33.3 g/dL (32.0-36.0); Mean Corpuscular Volume 91.2 fL (80.0-100.0); Platelet Count 170 K/uL (130-400); RDW Coefficient of Variation 14.8 % (11.5-14.5); RDW Standard Deviation 49.4 fL (36.4-46.3); Red Blood Count 3.88 M/uL (4.20-5.40); White Blood Count 7.15 K/ul (4.8-10.8)
[2022-11-21] MEDS ORDERED: miSOPROStoL 50 MCG TAB PO STA (09:26)
--- NOTE | 2022-11-21 12:55 | History & Physical Report ---
Date of Service November 21, 2022 Assessment & Plan (1) Post-dates : Plan Cytotec 50 mcg orally Admission and Anticipated Discharge Date Admission Date: November 21, 2022 History of Present Illness Chief Complaint: induction of labor Primary Care Provider: TONIE PCP 31 F [id number] at 40.4 weeks admitted for IOL for post dates. GBS is negative. Allergies Allergy/AdvReac Type Severity Reaction Status Date / Time cephalexin Allergy Intermediate HIVES Verified 09/12/18 08:14 Home Medications Medication Instructions Recorded Confirmed Type ferrous sulfate 325 mg (65 mg 325 mg PO BID 11/21/22 11/21/22 History iron) tablet prenat.vits,ari,[id number] 1 tab PO DAILY 11/21/22 11/21/22 History Patient History Medical History Abnormal Pap smear of vagina 09/2016 - had colpo History of miscarriage Surgical History History of colposcopy 2016 and 2017 Social History Smoking Status: Never smoker Second Hand Exposure: No; Do You Dip or Chew Tobacco: No; Hx Alcohol Use: No Hx Substance Use: No Preferred Language: Mohawk Communication Ability: Effective Cutter Inspector Required: No Beliefs That Will Affect Care: None marital status: Single Current Living Situation: Spouse and Family Current Living Situation Comment: house Other Information That Helps Us Care for You: No Feels Safe at Home: Yes Safety Concerns: Feels Safe At This Time Assistive Devices: None 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 Review of Systems All systems reviewed & are unremarkable except as noted in HPI & below Physical Exam Constitutional: WD/WN, vitals as above Eyes: PERRL, conjunctivae normal, anicteric sclerae Respiratory: normal respiratory effort, lungs clear to auscultation Cardiovascular: RRR, no murmur, no edema Gastrointestinal (Abdomen): Inspection/Auscultation: abdomen normal to inspection Skin: no rashes, warm and dry Neurologic: patellar DTR's 2+ bilat, sensation intact Psychiatric: A+Ox3, euthymic affect Genitourinary: no vaginal lesions, no adnexal mass OB Exam Abdomen: + fundal height and + vertex Manual OB Exam: + cervical dilation 2 cm and 3 cm, + cervical effacement 50% and + station high and -2 OB Exam Monitor Tracing: + external FHT monitor used, + external uterine monitor used, + category I and + normal FHT variability Results & Data Vital Signs (Past 12 Hours) Vital Signs Temp Pulse Resp BP 11/21/22 07:52 36.5 C 11/21/22 11:00 20 11/21/22 11:00 36.7 C 11/21/22 11:01 78 107/65 11/21/22 09:45 11/21/22 09:45 11/21/22 07:47 76 119/72 Laboratory Results Laboratory Results - last 72 hr 11/21/22 11/21/22 08:37 Unknown WBC 7.15 RBC 3.88 L Hgb 11.8 L Hct 35.4 L MCV 91.2 MCH 30.4 MCHC 33.3 RDW Std Deviation 49.4 H RDW Coeff of Andrey 14.8 H Plt Count 170 MPV 11.0 SARS-CoV-2, RNA, NAAT NEGATIVE Code Status & VTE Plan VTE Prophylaxis Plan VTE Prophylaxis will be ordered: No Monitoring External Monitor Cat 1
[2022-11-21] MEDS ORDERED: LIDOCAINE 2%/EPINEPHRINE 1:200,000 20 ML PF ONE (14:04)
[2022-11-21] MEDS ORDERED: ePHEDrine sulfate 50 MG/ML AMP ONE (14:04)
[2022-11-21] MEDS ORDERED: fentaNYL 2MCG/ML ROPIVACAINE 1.25MG/ML 100 ML BAG EPI ONE (14:04)
[2022-11-21] MEDS ORDERED: SODIUM CHLORIDE 0.9% PF INJ 10 ML VIAL ONE (14:04)
[2022-11-21] MEDS ORDERED: BUPIVACAINE 0.25% PF 30 ML VIAL ONE (14:04)
[2022-11-21] MEDS ORDERED: fentaNYL citrate PF 100 MCG/2 ML VIAL ONE (14:04)
[2022-11-21] MEDS ORDERED: BUPIVACAINE 0.25% PF 30 ML VIAL EPI PRN (15:13)
[2022-11-21] MEDS ORDERED: ONDANSETRON INJ 2 MG/ML 2 ML VIAL IV PRN (15:13)
[2022-11-21] MEDS ORDERED: ROPIVACAINE 0.5% PF 5 MG/ML 20 ML VIAL EPI PRN (15:13)
[2022-11-21] MEDS ORDERED: LIDOCAINE 2%/EPINEPHRINE 1:200,000 20 ML PF EPI STA (15:13)
[2022-11-21] MEDS ORDERED: SODIUM CHLORIDE 0.9% PF INJ 10 ML VIAL EPI STA (15:13)
[2022-11-21] MEDS ORDERED: NALOXONE HCL 1 MG in SODIUM CHLORIDE 0.9% 1000ML 1,000 ML IV PRN (15:13)
[2022-11-21] MEDS ORDERED: NALBUPHINE HCL INJ 10 MG/ML AMP IV PRN (15:13)
[2022-11-21] MEDS ORDERED: NALOXONE HCL 0.4 MG/1 ML VIAL/CARP IV PRN (15:13)
[2022-11-21] MEDS ORDERED: fentaNYL 2MCG/ML ROPIVACAINE 1.25MG/ML 100 ML BAG EPI PRN (15:13)
[2022-11-21] MEDS ORDERED: fentaNYL citrate PF 100 MCG/2 ML VIAL EPI STA (15:13)
[2022-11-21] MEDS ORDERED: SODIUM CHLORIDE 0.9% PF INJ 10 ML VIAL EPI PRN (15:13)
[2022-11-21] MEDS ORDERED: LIDOCAINE 2% MPF LOCAL 5 ML VIAL EPI PRN (15:13)
[2022-11-21] MEDS ORDERED: fentaNYL citrate PF 100 MCG/2 ML VIAL EPI PRN (15:13)
[2022-11-21] MEDS ORDERED: ePHEDrine sulfate 50 MG/ML AMP IV PRN (15:13)
[2022-11-21] MEDS ORDERED: BUPIVACAINE 0.25% PF 30 ML VIAL EPI STA (15:13)
[2022-11-21] MEDS ORDERED: diphenhydrAMINE 50 MG/ML VIAL IV PRN (15:13)
--- NOTE | 2022-11-21 15:13 | Anesthesiology Consultation ---
Date of Service November 21, 2022 Assessment & Plan Chart Review Chart Review: Patient NOT seen in Pre Admission Testing and Acceptable Risk for Labor Epidural Consults Requested none ASA ASA2 Proposed Anesthesia Anesthesia Type: Labor Epidural Risk / Benefits Reviewed With: PT / POA / Parent / Guardian, Accepts Plan and Informed Consent Obtained History Height/Weight Height: 5 ft 3 in Weight: 68.946 kg Allergies Allergy/AdvReac Type Severity Reaction Status Date / Time cephalexin Allergy Intermediate HIVES Verified 09/12/18 08:14 Medications Home Medications Medication Instructions Recorded Confirmed Last Taken ferrous sulfate 325 mg (65 mg 325 mg PO BID 11/21/22 11/21/22 11/20/22 iron) tablet prenat.vits,ari,bgh-[id number] 1 tab PO DAILY 11/21/22 11/21/22 11/20/22 Active Medications Generic Name Dose Route Start Last Admin Trade Name Freq PRN Reason Stop Dose Admin Lactated Ringer's 1,000 mls @ 125 mls/hr 11/21/22 08:24 11/21/22 14:55 Lr IV 11/23/22 08:23 125 mls/hr .Q8H PRN Infusion L&D Protocol Protocol Past Medical History Medical History Abnormal Pap smear of vagina 09/2016 - had colpo History of miscarriage Exercise / Class Metabolic Activity II 4-5 Yardwork/Stairs/Walk up hill Past Surgical History Surgical History History of colposcopy 2016 and 2017 Past Anesthesia History No Hx of Anesthesia Complications and No Family Hx of Anesthesia Complications History of PONV No Hx of PONV and No Hx of Motion Sickness Social History Smoking Status: Never smoker Do You Dip or Chew Tobacco: No Hx Alcohol Use: No Hx Substance Use: No substance use type: does not use Physical Exam Vital Signs Last Vital Signs Temp 36.7 C 11/21/22 11:00 Pulse 98 H 11/21/22 15:11 Resp 20 11/21/22 15:01 BP 108/59 L 11/21/22 15:11 Pulse Ox 95 11/21/22 15:10 ENMT Mouth: no dentition abnormality Thyromental Distance: > or= 3.5 Finger Breadths Mallampati Class: II Neck normal visual inspection Respiratory normal respiratory effort Auscultation: lungs clear to auscultation bilaterally Cardiovascular Rate/Rhythm: regular rate and regular rhythm Psychiatric Orientation: alert Testing Laboratory Results 11/21/22 08:37
--- NOTE | 2022-11-21 15:31 | Labor Progress Brief Note ---
Date of Service November 21, 2022 Assessment & Plan Admission and Anticipated Discharge Date Admission Date: November 21, 2022 Physical Exam Genitourinary: Manual OB Exam: + cervical dilation 4 cm and 5 cm, + cervical effacement 90% and + station -1 OB Exam Monitor Tracing: + external FHT monitor used, + external uterine monitor used, + category I and + normal FHT variability AROM with Amni-hook clear fluid Results & Data Vital Signs (Past 12 Hours) Vital Signs Temp Pulse Resp BP Pulse Ox 11/21/22 07:52 36.5 C 20 11/21/22 15:30 71 119/59 L 11/21/22 15:27 86 117/68 11/21/22 15:25 78 117/67 95 11/21/22 15:23 93 H 110/64 11/21/22 15:21 78 111/62 11/21/22 15:20 81 95 11/21/22 15:19 76 107/57 L 11/21/22 15:17 73 106/56 L 11/21/22 15:15 84 20 96 11/21/22 15:16 81 104/59 L 11/21/22 15:14 79 111/59 L 11/21/22 15:11 98 H 108/59 L 11/21/22 15:10 88 95 11/21/22 15:09 82 109/56 L 11/21/22 15:07 83 112/65 11/21/22 15:05 80 114/65 96 11/21/22 15:03 78 114/59 L 11/21/22 15:00 93 H 96 11/21/22 15:01 80 20 114/58 L 11/21/22 14:59 90 117/76 11/21/22 14:58 75 117/72 11/21/22 14:55 87 96 11/21/22 14:50 78 20 116/67 11/21/22 14:49 75 95 11/21/22 14:44 69 94 11/21/22 14:39 75 95 11/21/22 14:30 20 11/21/22 14:30 20 11/21/22 14:34 70 93 11/21/22 14:29 74 93 11/21/22 14:24 62 94 11/21/22 14:19 72 93 11/21/22 14:14 67 94 11/21/22 14:09 78 94 11/21/22 14:05 70 94 11/21/22 14:04 70 94 11/21/22 13:59 90 11/21/22 13:59 71 11/21/22 13:59 75 93 11/21/22 13:58 66 116/76 11/21/22 11:00 20 11/21/22 11:00 36.7 C 20 11/21/22 11:01 78 107/65 11/21/22 09:45 20 11/21/22 09:45 20 11/21/22 07:47 76 119/72
--- NOTE | 2022-11-21 18:32 | Delivery Summary ---
Vaginal Delivery Summary Date of Service November 21, 2022 Vaginal Delivery Summary Delivery Note live female HARVINDER over intact perineum with delayed cord clamping and Apgars 8/9 weight pending. Cord blood obtained followed by spontaneous delivery of intact placenta with 3VC. No tears. EBL 200 ml. Final sponge and instrument count are correct. Mom and baby stable.
[2022-11-21] MEDS ORDERED: bisacodyL 10 MG SUPP PR PRN (18:34)
[2022-11-21] MEDS ORDERED: METHYLERGONOVINE MALEATE 0.2 MG/ML AMP IM ONE (18:34)
[2022-11-21] MEDS ORDERED: BENZOCAINE 20% AER SPR 82.5 GM CAN EXT PRN (18:34)
[2022-11-21] MEDS ORDERED: DIPHTHERIA/TETANUS/PERTUSSIS Vaccine (Tdap, Age 7+yrs) 0.5mL SYR/VL IM ONE (18:34)
[2022-11-21] MEDS ORDERED: ACETAMINOPHEN 325 MG TAB PO PRN (18:34)
[2022-11-21] MEDS ORDERED: HYDROCORTISONE ACETATE 25 MG SUPP PR PRN (18:34)
--- NOTE | 2022-11-21 19:13 | Anesthesia Procedure Note ---
Date of Service November 21, 2022 Anesthesia Post Epidural Note Vital Signs Vital Signs: Temp Pulse Resp BP Pulse Ox 36.7 C 80 18 125/77 96 11/21/22 18:00 11/21/22 19:08 11/21/22 18:53 11/21/22 19:08 11/21/22 18:25 Notes Mental Status: alert / awake / arousable Nausea / Vomiting: adequately controlled Pain: adequately controlled Airway Patency, RR, SpO2: stable & adequate BP & HR: stable & adequate Hydration State: stable & adequate Neuraxial Anesthesia: was administered and sensory block is resolving Anesthetic Complications: no major complications apparent and Pt Satisfied with anesthetic care Epidural: Removed without complications and With tip intact
[2022-11-21] MEDS ORDERED: NON-FORMULARY MEDICATION (Ferrous Sulfate 325 mg (65 mg iron) Tablet) PO SCH (21:00)
[2022-11-21] MEDS: DOCUSATE SODIUM 100 MG CAP PO SCH (23:25)
[2022-11-22] MEDS: IBUPROFEN 600 MG TAB PO PRN ×3 (04:15→21:43)
[2022-11-22 07:14] LABS: Hematocrit (blood only) 34.5 % (37.0-47.0); Hemoglobin 11.4 g/dl (12.0-16.0); Mean Corpuscular Hemoglobin 30.5 pg (25.0-34.0); Mean Corpuscular Volume 92.2 fL (80.0-100.0); Mean Platelet Volume 10.7 fL (9.4-12.4); Platelet Count 168 K/uL (130-400); RDW Coefficient of Variation 14.6 % (11.5-14.5); RDW Standard Deviation 49.5 fL (36.4-46.3); Red Blood Count 3.74 M/uL (4.20-5.40); White Blood Count 9.86 K/ul (4.8-10.8)
[2022-11-22] MEDS: PRENATAL VITAMIN 1 TAB PO SCH (07:45)
[2022-11-22] MEDS: FERROUS SULFATE 325 MG TAB PO SCH (07:45)
[2022-11-22] MEDS: DOCUSATE SODIUM 100 MG CAP PO SCH ×2 (07:45→21:43)
[2022-11-22] MEDS ORDERED: NON-FORMULARY MEDICATION (Prenat.Vits,Cal,Min-Iron-Folic Tablet) PO SCH (09:00)
--- NOTE | 2022-11-22 11:05 | Obstetrical Progress Note ---
Date of Service November 22, 2022 Assessment & Plan Admission and Anticipated Discharge Date Admission Date: November 21, 2022 Subjective Patient is seen and examined. She feels well, no complaints. Ambulating without dizziness Voiding without difficulty Tolerating regular diet with out N&V Bleeding is minimal No fever/ chills/ CP/ SOB/ N&V/ Leg pain Breast feeding without problems Vital Signs Temp Pulse Resp BP Pulse Ox O2 Del Method 11/22/22 08:00 36.6 C 72 18 98/65 L 96 Room Air 11/22/22 04:30 36.7 C 67 16 114/74 98 Room Air 11/22/22 00:00 37.0 C 77 16 100/66 96 Room Air Lab Results 11/21/22 11/21/22 11/22/22 Range/Units 08:37 Unknown 06:53 WBC 7.15 9.86 (4.8-10.8) K/ul RBC 3.88 L 3.74 L (4.20-5.40) M/uL Hgb 11.8 L 11.4 L (12.0-16.0) g/dl Hct 35.4 L 34.5 L (37.0-47.0) % MCV 91.2 92.2 (80.0-100.0) fL MCH 30.4 30.5 (25.0-34.0) pg MCHC 33.3 33.0 (32.0-36.0) g/dL RDW Std Deviation 49.4 H 49.5 H (36.4-46.3) fL RDW Coeff of Andrey 14.8 H 14.6 H (11.5-14.5) % Plt Count 170 168 (130-400) K/uL MPV 11.0 10.7 (9.4-12.4) fL SARS-CoV-2, RNA, NAAT NEGATIVE (NEGATIVE) PE: General: Alert, orientedx3, NAD Abd: soft, NT, fundus firm, below Umbilicus Perineum intact, Lochia rubra minimal Ext; NT, no edema AP: 31 yo s/p , ppd# 1 VSS Afebrile doing well Continue routine care All questions were answered D/C plan per her tonight or tomorrow Results & Data Vital Signs (Past 12 Hours) Vital Signs Temp Pulse Resp BP Pulse Ox O2 Del Method 11/22/22 08:00 36.6 C 72 18 98/65 L 96 Room Air 11/22/22 04:30 36.7 C 67 16 114/74 98 Room Air 11/22/22 00:00 37.0 C 77 16 100/66 96 Room Air
[2022-11-22] MEDS ORDERED: bisacodyL 5 MG TABEC PO SCH (20:00)
[2022-11-23 07:18] LABS: Hematocrit (blood only) 34.9 % (37.0-47.0); Hemoglobin 11.6 g/dl (12.0-16.0)
[2022-11-23] MEDS: DOCUSATE SODIUM 100 MG CAP PO SCH (07:33)
[2022-11-23] MEDS: FERROUS SULFATE 325 MG TAB PO SCH (07:33)
[2022-11-23] MEDS: PRENATAL VITAMIN 1 TAB PO SCH (07:33)
--- NOTE | 2022-11-23 10:11 | Obstetrical Progress Note ---
Date of Service November 23, 2022 Assessment & Plan (1) normal course: PPD #1 pt doing well anticipate disch tomorrow Results & Data Vital Signs (Past 12 Hours) Vital Signs Temp Pulse Resp BP Pulse Ox O2 Del Method 11/23/22 09:03 36.7 C 71 18 107/70 99 11/23/22 07:35 36.7 C 71 18 107/70 Room Air 11/22/22 23:39 36.7 C 72 17 109/68 99 Room Air
== END 2022-11-23 11:05 | disposition home or self-care (01) | DRG 807 ==
LOC: 4S1 07:37 → 4E2 21:00